=== PATIENT | male | born 1990 | race Hispanic/Latino ===

== ENCOUNTER 2017-04-01 09:42 | Emergency (ER) | payer SELFPAY ==
[2017-04-01 10:39] VITALS: BP 128/50
== END 2017-04-01 12:00 | disposition left against medical advice (07) ==
LOC: ED 09:42
DX: K08.89 Other specified disorders of teeth and supporting structures (principal); Z53.21 Procedure and treatment not carried out due to patient leaving prior to being seen by health care provider

== ENCOUNTER 2017-08-01 16:01 | Emergency (ER) | payer SELFPAY ==
[2017-08-01 16:07] VITALS: BP 126/74
== END 2017-08-01 18:00 | disposition left against medical advice (07) ==
LOC: ED 16:01
DX: S09.90XA Unspecified injury of head, initial encounter (principal); Z53.21 Procedure and treatment not carried out due to patient leaving prior to being seen by health care provider; X58.XXXA Exposure to other specified factors, initial encounter; Y93.89 Activity, other specified; Y92.89 Other specified places as the place of occurrence of the external cause; Y99.8 Other external cause status